=== PATIENT | female | born 1945 | race Caucasian/White ===

== ENCOUNTER 2018-05-26 09:00 | Inpatient (IN) | payer OTHER ==
[~2018-05-26] VITALS: Ht 144.8 cm; Wt 65.8 kg
[2018-05-28] MEDS ORDERED: SYNTHROID50 MCG (15:55)
[2018-05-28] MEDS ORDERED: HYDRALAZINE HCL25 MG (15:55)
[2018-05-28] MEDS ORDERED: VERAPAMIL ER240 MG (15:55)
[2018-05-28] MEDS ORDERED: CLONAZEPAM1 M1 (15:55)
[2018-05-28] MEDS ORDERED: CITALOPRAM HBR20 MG (15:55)
[2018-05-28] MEDS ORDERED: LEUCINE (15:56)
[2018-06-03] MEDS ORDERED: CLONAZEPAM1 MG PO (11:13)
[2018-06-03] MEDS ORDERED: CELEXA20 MG PO (11:13)
[2018-06-03] MEDS ORDERED: VERAPAMIL ER240 MG PO (11:13)
[2018-06-03] MEDS ORDERED: HYDRALAZINE HCL50 MG PO (11:13)
[2018-06-03] MEDS ORDERED: LEVSIN0.125 MG PO (11:14)
[2018-06-03] MEDS ORDERED: SYNTHROID50 MCG PO (11:14)
[2018-06-03] MEDS ORDERED: GASTRACE CAPSU1 EACH PO (11:14)
[2018-06-04] MEDS ORDERED: PERCOCET 5-3251 EACH PO (16:42)
[2018-06-04] MEDS ORDERED: CIPRO500 MG PO (16:42)
[2018-06-04] MEDS ORDERED: ELIQUIS2.5 MG PO (16:42)
== END 2018-06-04 20:16 | DRG 470 ==
LOC: O/R 06-02 06:09 → SURH 06-02 06:09
PROVIDERS: Orthopaedic Surgery
PROC: 0MNP0ZZ Release Left Knee Bursa and Ligament, Open Approach (ICD-10-PCS; 2018-06-02)
PROC: 0SRD0J9 Replacement of Left Knee Joint with Synthetic Substitute, Cemented, Open Approach (ICD-10-PCS; principal; 2018-06-02 12:15)
DX: M17.12 Unilateral primary osteoarthritis, left knee (principal); D62 Acute posthemorrhagic anemia; M81.0 Age-related osteoporosis without current pathological fracture; I10 Essential (primary) hypertension; E03.8 Other specified hypothyroidism; Z53.1 Procedure and treatment not carried out because of patient's decision for reasons of belief and group pressure; K58.8 Other irritable bowel syndrome

== ENCOUNTER 2021-05-10 09:00 | Inpatient (IN) | payer OTHER ==
[~2021-05-10] VITALS: Ht 142.2 cm; Wt 68.0 kg
[~2021-05-10 09:00] MED LIST: CELEXA20 MG PO; CIPRO500 MG PO; CITALOPRAM HBR20 MG; CLONAZEPAM1 M1; CLONAZEPAM1 MG PO; ELIQUIS2.5 MG PO; GASTRACE CAPSU1 EACH PO; HYDRALAZINE HCL25 MG; HYDRALAZINE HCL50 MG PO; LEUCINE; LEVSIN0.125 MG PO; PERCOCET 5-3251 EACH PO; SYNTHROID50 MCG; SYNTHROID50 MCG PO; VERAPAMIL ER240 MG; VERAPAMIL ER240 MG PO
[2021-05-10] MEDS ORDERED: ALEVE220 MG PO (11:21)
[2021-05-10] MEDS ORDERED: ZESTRIL20 MG PO (11:21)
[2021-05-17] MEDS ORDERED: PERCOCET 5-3251 EACH PO (11:23)
[2021-05-17] MEDS ORDERED: DUI500 PO (11:23)
[2021-05-17] MEDS ORDERED: ELIQUIS2.5 MG PO (11:23)
== END 2021-05-17 15:43 | DRG 470 ==
LOC: O/R 05-15 06:37 → SURG 05-15 06:37 → SURH 05-15 09:00 → SURG 05-15 10:01 → SURH 05-15 13:30 → SURG 05-17 15:43
PROVIDERS: ADMIT Orthopaedic Surgery; ATTEND Orthopaedic Surgery
PROC: 0SRC0J9 Replacement of Right Knee Joint with Synthetic Substitute, Cemented, Open Approach (ICD-10-PCS; principal; 2021-05-15 13:30)
DX: M17.11 Unilateral primary osteoarthritis, right knee (principal); D62 Acute posthemorrhagic anemia; Z53.1 Procedure and treatment not carried out because of patient's decision for reasons of belief and group pressure